=== PATIENT | female | born 2000 | race Caucasian/White ===

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

== ENCOUNTER → 2022-02-27 | Outpatient (CLI) | payer BC ==
--- NOTE | 2022-02-27 15:17 | US ---
EXAMINATION TYPE: US pelvic complete DATE OF EXAM: 02/27/2022 COMPARISON: NONE CLINICAL HISTORY: N92.6 IRREGULAR MENSES. Irreg menses TECHNIQUE: Transabdominal (TA). Transabdominal sonographic images of the pelvis were acquired. Date of LMP: 02/12/2022, G0 EXAM MEASUREMENTS: Uterus: 9.1 x 5.3 x 3.5 cm Endometrial Stripe: 0.6 cm Right Ovary: 4.7 x 2.4 x 1.9 cm Left Ovary: 3.7 x 2.1 x 1.6 cm 1. Uterus: Anteverted wnl 2. Endometrium: wnl 3. Right Ovary: wnl 4. Left Ovary: wnl 5. Bilateral Adnexa: wnl 6. Posterior cul-de-sac: no free fluid IMPRESSION: No discrete abnormality seen at this time.
== END | disposition home or self-care (01) ==
LOC: RADUSWWP 14:45
PROVIDERS: ATTEND Family Medicine
DX: N92.6 Irregular menstruation, unspecified (principal)
CPT/HCPCS: 76856